=== PATIENT | male | born 1960 | race American Indian/Alaskan Native ===

== ENCOUNTER 2022-07-01 21:32 | Emergency (ER) | payer MEDICARE, OTHER ==
[2022-07-02] MEDS ORDERED: ACETAMINOPHEN 500 MG TAB PO ONE (02:23)
[2022-07-02] MEDS ORDERED: IBUPROFEN 600 MG TAB PO ONE (02:23)
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
[2022-07-02 04:20] VITALS: BP 153/84
== END 2022-07-02 04:22 | disposition home or self-care (01) ==
LOC: ED 21:32
DX: S83.91XA Sprain of unspecified site of right knee, initial encounter (principal); M62.830 Muscle spasm of back; Z91.012 Allergy to eggs; V89.2XXA Person injured in unspecified motor-vehicle accident, traffic, initial encounter; Y93.89 Activity, other specified; Y92.89 Other specified places as the place of occurrence of the external cause; Y99.8 Other external cause status
CPT/HCPCS: 72100; 99283